=== PATIENT | male | born 1960 | race Caucasian/White ===

== ENCOUNTER → 2016-08-28 | Outpatient (CLI) | payer OTHER ==
--- NOTE | ~2016-08-28 | MR103 ---
[facility]. [facility] A Service of [facility] & [facility] RADIOLOGY TEXT RESULTS PATIENT: CARLITOS NOLASCO LOCATION: [facility] : 62 UNIT #: [id number] AGE: [address]: GENE LOMAX SEX: M ORDER DR: [id number] [address] [address] [id number] O MR#: [id number] #: [id number] NAME: CARLITOS NOLASCO : 1960 SEX: M STUDY DATE/TIME: 08/28/2016 14:49 UNIT: [facility] ROOM: STUDY DESCRIPTION: MR Knee Wo Contrast Lt Attending Physician: Gene Lomax M.D. Referring Physician: Gene Lomax M.D. Ordering Physician: Gene Lomax M.D. Primary Care Physician: Alek Henriquez M.D. MRI CENTER REPORT This report is preliminary unless electronic signature is present. EXAM MRI of the left knee without contrast. HISTORY Complains of left knee pain x4 weeks. No known trauma. Complains of pain behind kneecap. COMPARISON Left knee films, 08/21/2016. FINDINGS Multiplanar, multiecho imaging was performed of the left knee utilizing a high field magnet and dedicated protocol. The examination demonstrates developing tricompartment osteoarthritis of the knee with developing marginal osteophytes, most prominent medial compartment. There is ynfm-jb-uxsdhqim grade chondromalacia central weightbearing aspect medial femoral condyle, but no convincing evidence of full-thickness cartilage loss. In the patellofemoral compartment there is jvvp-xa-vcomosor grade chondromalacia median ridge of the patella. Trochlear cartilage unremarkable. Lateral compartment articular cartilage appears normal. Cruciate and collateral ligaments appear normal. The menisci appear normal. Extensor mechanism unremarkable. There is a moderate amount of anterior knee soft tissue swelling and edema. IMPRESSION 1. Developing tricompartment osteoarthritis of the knee with diffuse cartilage thinning weightbearing aspect medial femoral condyle with diffuse ogfm-eu-kojzonxx grade chondromalacia. Additional mowu-oa-vbrwkijq grade chondromalacia noted median ridge of the patella. 2. No evidence of meniscal tear. [facility] A Service of [facility] & [facility] RADIOLOGY TEXT RESULTS PATIENT: CARLITOS NOLASCO LOCATION: [facility] : 62 UNIT #: [id number] AGE: [address]: GENE LOMAX SEX: M ORDER DR: Dictated by... Muriel Rivera M.D. THIS IS AN ELECTRONICALLY VERIFIED REPORT Muriel Rivera M.D. at 08/29/2016 3:42 PM TERRY/madeline TD: 08/29/2016 11:31 JOB #: [id number] MRI CENTER REPORT Page 1 of 1
== END | disposition home or self-care (01) ==
LOC: SMRI 13:58
DX: M25.462 Effusion, left knee (principal); M22.42 Chondromalacia patellae, left knee; M17.12 Unilateral primary osteoarthritis, left knee; M94.8X6 Other specified disorders of cartilage, lower leg
CPT/HCPCS: 73721